=== PATIENT | female | born 1960 | race Caucasian/White ===

== ENCOUNTER 2016-07-29 11:03 | Emergency (ER) | payer OTHER ==
[~2016-07-29 11:03] MED LIST: ALPRAZOLAM0.5 M3 PO; LOPERAMIDE2 M2 PO; ZOFRAN ODT4 MG PO
[2016-07-29] MEDS ORDERED: ANTIDEPRESSANT (11:17)
[2016-07-29] MEDS ORDERED: VENTOLIN HFA18 G2 PO (11:18)
[2016-07-29 12:01] LABS: BASO % 0.1 % (0-2); EOS % 0.4 % (0-7); HCT-HEMATOCRIT 39.7 % (34.0-49.0); HGB-HEMOGLOBIN 13.3 gm/dl (12.0-15.5); IMMATURE GRANULOCYTES ABSOLUTE 0.03 tho/cmm (0-0.03); IMMATURE GRANULOCYTES PERCENT 0.4 % (0-0.3); LYMPH % 10.8 % (20-45); LYMPH ABSOLUTE COUNT 0.8 tho/cmm (0.8-4.5); MCH (MEAN CORPUSCULAR HGB) 31.7 pg (28.0-32.0); MCHC MEAN CORPUSCULAR HGB CONC 33.5 % (32.0-36.0); MCV (MEAN CELL VOLUME) 94.7 fl (82.0-96.0); MEAN PLATELET VOLUME 10.1 cmc (9.4-12.4); MONO % 6.1 % (0-12); MONOCYTE ABSOLUTE COUNT 0.4 tho/cmm (0.0-1.2); NEUTROPHIL ABSOLUTE COUNT 5.7 tho/cmm (1.6-8.0); NEUTROPHIL-AUTOMATED 5.7 tho/cmm (1.6-8.0); NEUTROPHILS % 82.2 % (40-80); PLATELET COUNT 154 tho/cmm (150-450); RED BLOOD COUNT 4.19 mil/cmm (4.00-5.20); RED CELL DISTRIBUTION WIDTH 12.9 % (12.4-16.4); WHITE BLOOD COUNT 6.9 tho/cmm (4.0-10.0)
[2016-07-29 12:16] LABS: ALB/GLOB RATIO 0.9 (0.8-2.0); ALBUMIN 3.5 g/dl (3.5-5.0); ALKALINE PHOSPHATASE 85 U/L (33-138); ALT/SGPT 33 U/L (12-78); ANION GAP 10 mmol/L (0-20); AST/SGOT 28 U/L (10-40); BILIRUBIN,TOTAL 0.4 mg/dl (0-1.5); BLOOD UREA NITROGEN 9 mg/dl (6-24); CALCIUM 8.4 mg/dl (8.5-10.5); CARBON DIOXIDE-VENOUS 27 mmol/L (22-32); CHLORIDE 105 mmol/l (96-110); GLUCOSE 127 mg/dL (70-110); POTASSIUM 3.1 mmol/L (3.7-5.1); SODIUM 139 mmol/L (135-145); eGFR VALUE FOR BLACK >90 mL/Min
[2016-07-29] MEDS ORDERED: LEVAQUIN750 M1 PO (13:30)
[2016-07-29] MEDS ORDERED: ALBUTEROL2.5 MG/3 M INH (13:30)
== END 2016-07-29 14:15 ==
LOC: EDMED 11:03
PROVIDERS: Emergency Medicine
DX: J18.1 Lobar pneumonia, unspecified organism (principal); E87.6 Hypokalemia; J45.909 Unspecified asthma, uncomplicated; Z87.891 Personal history of nicotine dependence; Z98.51 Tubal ligation status; Z79.51 Long term (current) use of inhaled steroids
CPT/HCPCS: J1956; J7030

== ENCOUNTER 2016-07-31 03:23 | Emergency (ER) | payer OTHER ==
[~2016-07-31 03:23] MED LIST changes: +ALBUTEROL2.5 MG/3 M INH; +ANTIDEPRESSANT; +LEVAQUIN750 M1 PO; +VENTOLIN HFA18 G2 PO
[2016-07-31] MEDS ORDERED: LEVAQUIN750 M1 PO (03:56)
[2016-07-31] MEDS ORDERED: ALBUTEROL2.5 MG/3 M (03:57)
[2016-07-31] MEDS ORDERED: PAXIL PO (04:10)
== END 2016-07-31 04:15 ==
LOC: EDMED 03:23
DX: R20.2 Paresthesia of skin (principal); T37.8X5A Adverse effect of other specified systemic anti-infectives and antiparasitics, initial encounter; J44.9 Chronic obstructive pulmonary disease, unspecified; J45.909 Unspecified asthma, uncomplicated; F17.200 Nicotine dependence, unspecified, uncomplicated; Z79.51 Long term (current) use of inhaled steroids